=== PATIENT | male | born 1965 | race Caucasian/White ===

== ENCOUNTER 2024-09-29 13:57 | Emergency (ER) | payer MEDICARE, OTHER ==
[~2024-09-29] VITALS: Ht 185.4 cm; Wt 76.7 kg
[2024-09-29] MEDS ORDERED: LORAZEPAM INJ 2 MG/ML VIAL ONE (14:58)
[2024-09-29] MEDS ORDERED: HYDROCODONE/APAP 10/325MG TABLET ONE (14:59)
[2024-09-29] MEDS: LORAZEPAM INJ 2 MG/ML VIAL IM ONE (15:00)
[2024-09-29] MEDS: HYDROCODONE/APAP 10/325MG TABLET PO ONE (15:11)
[2024-09-29] MEDS ORDERED: QUETIAPINE FUMARATE 100 MG TABLET ONE (20:07)
[2024-09-29] MEDS: QUETIAPINE FUMARATE 100 MG TABLET PO SCH (20:09)
[2024-09-29] MEDS ORDERED: DIVALPROEX SODIUM 500 MG TABLET.DR PO ONE (21:46)
[2024-09-29] MEDS ORDERED: LORAZEPAM 1 MG TABLET ONE (21:46)
[2024-09-29] MEDS: LORAZEPAM 1 MG TABLET PO ONE (21:53)
[2024-09-29] MEDS: DIVALPROEX SODIUM 500 MG TABLET.DR PO ONE (21:53)
[2024-09-30 00:08] VITALS: BP 133/72; TEMP 98.5; O2SAT 98
== END 2024-09-30 01:04 ==
LOC: ER 14:20
DX: S80.12XA Contusion of left lower leg, initial encounter (principal); F17.200 Nicotine dependence, unspecified, uncomplicated; F25.9 Schizoaffective disorder, unspecified; E03.9 Hypothyroidism, unspecified; F31.9 Bipolar disorder, unspecified; F41.9 Anxiety disorder, unspecified; G44.309 Post-traumatic headache, unspecified, not intractable; I10 Essential (primary) hypertension; J45.909 Unspecified asthma, uncomplicated; W18.39XA Other fall on same level, initial encounter; Y93.89 Activity, other specified; Y92.89 Other specified places as the place of occurrence of the external cause; Y99.8 Other external cause status
CPT/HCPCS: 99285; 70450; 96372; 73552; J2060